=== PATIENT | female | born 1955 | race Caucasian/White ===

== ENCOUNTER 2021-05-11 16:08 | Emergency (ER) | payer OTHER, MEDICARE ==
[~2021-05-11 16:08] MED LIST: AMARYL2 MG PO; ASPIRIN CHEWABL81 MG PO; FENOFIBRATE160 MG PO; JARDIANCE10 MG PO; LIPITOR40 MG PO; LISINOPRIL-HCT1 EAC1 PO; METFORMIN HCL500 MG PO; PROTONIX 40MG T40 MG PO; TOPROL XL 50 MG50 MG PO; VITAMIN D35000 UNIT PO; ZOFRAN4 MG PO
== END 2021-05-11 20:40 | disposition home or self-care (01) ==
LOC: FER 16:08
DX: R07.81 Pleurodynia (principal); M79.621 Pain in right upper arm; I12.9 Hypertensive chronic kidney disease with stage 1 through stage 4 chronic kidney disease, or unspecified chronic kidney disease; E11.22 Type 2 diabetes mellitus with diabetic chronic kidney disease; N18.30 Chronic kidney disease, stage 3 unspecified; Z79.84 Long term (current) use of oral hypoglycemic drugs; Z79.899 Other long term (current) drug therapy; V43.52XA Car driver injured in collision with other type car in traffic accident, initial encounter
CPT/HCPCS: 71101; 73030; 73060